=== PATIENT | male | born 1945 | race Caucasian/White ===

== ENCOUNTER 2019-01-17 12:09 | Emergency (ER) | payer MEDICARE, OTHER ==
[~2019-01-17] VITALS: Ht 172.7 cm; Wt 77.1 kg
[2019-01-17] MEDS ORDERED: SITA50TA GT (12:26)
[2019-01-17] MEDS ORDERED: ASPI81TA31 PO (12:26)
[2019-01-17] MEDS ORDERED: AMLO2.5T4 PO (12:26)
[2019-01-17] MEDS ORDERED: CARV6.252 PO (12:26)
[2019-01-17] MEDS ORDERED: ISOS30TA6 PO (12:26)
[2019-01-17] MEDS ORDERED: GLIP5TAB13 PO (12:26)
[2019-01-17] MEDS ORDERED: RANO10003 PO (12:26)
[2019-01-17] MEDS ORDERED: METF-442 PO (12:26)
[2019-01-17] MEDS ORDERED: NITR0.4T48 SL (12:26)
[2019-01-17] MEDS ORDERED: ONDANSETRON ODT 4 MG TAB.RAPDIS ONE (12:29)
[2019-01-17] MEDS ORDERED: MORPHINE SULFATE 4 MG/1 ML DISP.SYRIN ONE (12:29)
[2019-01-17] MEDS ORDERED: MORPHINE SULFATE 4 MG/1 ML DISP.SYRIN IM ONE (12:30)
[2019-01-17] MEDS ORDERED: ONDANSETRON ODT 4 MG TAB.RAPDIS SL ONE (12:30)
--- NOTE | 2019-01-17 12:44 | NUR ---
Patient's pharmacist-son wants hydromorphone in the future and NOT morphine for pains 2/2 patient's renal issues. Patient's allergy/adverse rxn [facility] chart was updated accordingly.
--- NOTE | 2019-01-17 13:24 | NUR ---
Patient's son want glucose finger stick, notified.
--- NOTE | 2019-01-17 14:01 | NUR ---
Walker dispensed. Patient and family instructed on proper use of walker. Patient able to demonstrate correct use of walker. Patient discharged to home in stable conditon. Written and verbal after care instructions given to patient and adult son. Patient and family verbalized understanding of instructions. Patient ambulated out of ER with slow steady gait.
--- NOTE | 2019-01-17 14:01 | NUR ---
Patient's son verbalized that he is comfortable to bring his father (the patient) home.
--- NOTE | 2019-01-17 14:18 | NUR ---
Sabine gandhi in ED - 01/17/19 at 1512 by BRUNO Patient's pharmacist-son says that he is comfortable to bring his father (the patient) home with a walker, pending discharge papers@this time.
== END 2019-01-17 14:20 | disposition home or self-care (01) ==
LOC: ER 12:09
DX: M54.5 Low back pain (principal); R53.1 Weakness; E11.9 Type 2 diabetes mellitus without complications; Z95.1 Presence of aortocoronary bypass graft; Z88.5 Allergy status to narcotic agent; Z79.82 Long term (current) use of aspirin; Z79.899 Other long term (current) drug therapy
CPT/HCPCS: 82962; 96372; 99283; J2270; A4663; Q0162